=== PATIENT | female | born 1950 | race Caucasian/White ===

== ENCOUNTER 2018-04-04 05:26 | Day surgery (SDC) | payer OTHER, MEDICARE ==
[~2018-04-04] VITALS: Ht 154.9 cm; Wt 86.6 kg
--- NOTE | ~2018-04-04 | O ---
[facility] [place] [address] OPERATIVE REPORT Name: AMAURY BANKS Room #: 150-5 [facility]..#: [id number] Admission: 04/04/18 ������������������ Attend Phys: Francisco J Stern MD Discharge: ������������������ Date of : 46 Report #: [id number] THIS REPORT FOR: //name// CC: Dr. Jose Stern DATE OF SERVICE: 04/04/2018 REGIONAL MARKETING DIRECTOR: None. PREOPERATIVE DIAGNOSIS: Unilateral left lower lid entropion. POSTOPERATIVE DIAGNOSIS: Unilateral left lower lid entropion. OPERATION PERFORMED: Unilateral left lower lid entropion repair. ANESTHESIA: Local with IV sedation. COMPLICATIONS: None. INDICATIONS FOR PROCEDURE: This patient has unilateral lower lid entropion with chronic irritation and discharge. The current procedure is being undertaken in order to improve the patient's level of comfort and visual function. Informed consent was obtained to include but not limited to the loss of vision, bleeding, infection, scarring, failure to improve the problem and need for further surgery. DESCRIPTION OF OPERATION: The patient was taken to the operating room, where 2% Xylocaine with epinephrine mixed with equal parts of 0.75% Marcaine with Wydase was administered transcutaneously and transconjunctivally to the lower lid and lateral canthal area. The patient was then prepped and draped in the usual sterile fashion. A Rupert clamp was used to clamp the lateral canthus, following which a sharp canthotomy and cantholysis were performed. Hemostasis was achieved with a monopolar cautery, as it was throughout the case. A tarsal strip was prepared laterally, removing the lash-bearing portion of the redundant lid margin and the redundant tarsal plate. A transconjunctival dissection was then undertaken just inferior to the lower border of the tarsal plate. The lower lid retractors were disinserted from the inferior border of the tarsal plate. The lower lid retractors were then advanced and reattached to the anterior surface of the tarsal plate with mattress 5-0 chromic sutures passed transconjunctivally and secured in the infraciliary margin. The tarsal strip was then secured laterally with 2 interrupted 5-0 Prolene sutures. The [address] [address] OPERATIVE REPORT Name: AMAURY BANKS Room #: 150-5 [facility].#: [id number] Admission: 04/04/18 ������������������ Attend Phys: Francisco J Stern MD Discharge: ������������������ Date of : 46 Report #: [id number] subcutaneous structures and the skin were then closed with multiple interrupted 6-0 plain gut sutures so the lateral canthal angle was sharply reformed. The wound was then cleaned and dressed with ophthalmic antibiotic ointment. The patient was then transported to the recovery area having tolerated the procedure well with no anesthetic or operative complications being noted. ��������������������������������������������� ���������������������������������������� By: ��������������������������������������������� [id number] MD lisset Willis
[~2018-04-04 05:26] MED LIST: ASPIRIN81 M2 PO; BROVANA15 MCG/2 M INH; CELEXA20 MG PO; COREG6.25 MG PO; DALIRESP500 MCG PO; DOXEPIN 25 MG C25 MG PO; FLONASE 0.05%50 MCG NASAL; IPRAT-ALBUT 0.5-3 ML INH; IRBESARTAN150 MG PO; LUMIGAN2.5 M1 OPHTHALMIC; MAGNESIUM250 MG PO; METFORMIN HCL500 MG PO; MIRALAX119 GM PO; OMEPRAZOLE40 MG PO; POTASSIUM99 MG PO; PRESERVISION A1 EACH PO; PROLOPRIM100 MG PO; REFRESH LIQUIGE15 ML OPHTHALMIC; RESTASIS1 EACH OPHTHALMIC; SINGULAIR 10 MG10 M1 PO; SUPER B COMPLE1 EAC2 PO; VITAMIN D2000 UNIT PO; XANAX 0.5 MG0.5 MG PO; ZOCOR20 MG PO
[2018-04-04 12:50] VITALS: BP 143/56
== END 2018-04-04 14:10 | disposition home or self-care (01) ==
LOC: TBA 05:26 → OR 05:26
DX: H02.005 Unspecified entropion of left lower eyelid (principal); I10 Essential (primary) hypertension; E78.5 Hyperlipidemia, unspecified; J43.9 Emphysema, unspecified; K21.9 Gastro-esophageal reflux disease without esophagitis; E11.9 Type 2 diabetes mellitus without complications; F32.9 Major depressive disorder, single episode, unspecified; F41.9 Anxiety disorder, unspecified; Z98.41 Cataract extraction status, right eye; Z87.891 Personal history of nicotine dependence; Z98.42 Cataract extraction status, left eye; Z88.2 Allergy status to sulfonamides; Z79.82 Long term (current) use of aspirin; Z79.899 Other long term (current) drug therapy; Z98.890 Other specified postprocedural states
CPT/HCPCS: 50010; 50101; 50386; 50398; 51636; 56527; 56531